=== PATIENT | female | born 1985 | race Caucasian/White ===

== ENCOUNTER 2024-01-05 10:38 | Inpatient (IN) ==
[2024-01-05] MEDS ORDERED: Prochlorperazine 5 mg/ml 2 ml VIAL (10 mg) IV PRN (11:57)
[2024-01-05] MEDS ORDERED: Lidocaine 1% VIAL 10 MG/ML 30 ML VIAL INJ PRN (11:57)
[2024-01-05 13:02] LABS: Urine Benzodiazepine Screen None Detected (None Detect); Urine Cannabinoids Screen None Detected (None Detect); Urine Opiates Screen None Detected (None Detect)
[2024-01-05 13:54] LABS: ABS Monocytes 0.5 10^3/uL (0.0-0.9); ABS Neutrophils 5.9 10^3/uL (1.5-7.6); ABS Nucleated RBC 0.01 10^3/ul; Eosinophil % 0.2 %; Hematocrit 38.9 % (35-45); Hemoglobin 13.1 g/dL (11.5-14.3); Lymphocyte % 24.1 %; Mean Corpuscular Hemoglobin 29.9 pg (27-33); Mean Corpuscular Hgb Conc 33.7 g/dL (31-36); Mean Corpuscular Volume 88.7 fL (80-97); Mean Platelet Volume 9.8 fL (7.5-11.2); Nucleated Red Blood Cells % 0.1 %/100WBC (0.0-0.8); Platelet Count 150 10^3/uL (150-450); Red Blood Count 4.39 10^6/uL (3.63-4.92); Red Cell Distribution Width 14.2 % (12-17); White Blood Count 8.5 10^3/uL (3.8-11.8)
[2024-01-05 13:58] LABS: Urine Appearance Clear; Urine Bilirubin Negative (Negative); Urine Blood Negative (Negative); Urine Color Yellow; Urine Glucose Negative (Negative); Urine Ketones Negative (Negative); Urine Nitrite Negative (Negative); Urine Protein 1+ (>=30 mg/dL) (Negative); Urine Specific Gravity 1.031 (1.002-1.030); Urine Urobilinogen Negative (Negative)
[2024-01-05 14:03] LABS: Urine Bacteria 1+ /HPF (Absent); Urine Red Blood Cell Trace(0-2/hpf) /HPF (0-Trace); Urine Squamous Epithelial Cell Present /HPF (Absent); Urine White Blood Cell Trace(0-5/hpf) /HPF (0-Trace)
[2024-01-05 14:19] LABS: Urine Creatinine Concentration 208.99 mg/dL (20.00-320.00); Urine TP Creat Ratio 0.12 mg/mg
[2024-01-05 14:20] LABS: Albumin 3.7 g/dL (3.2-5.2); Albumin/Globulin Ratio 1.5 (1-3); Calcium 9.2 mg/dL (8.6-10.3); Creatinine, Serum 0.62 mg/dL (0.51-0.95); Globulin 2.4 g/dL (2-4); Potassium 4.2 mmol/L (3.5-5.0); Total Bilirubin 0.3 mg/dL (0.2-1.0); Total Protein 6.1 g/dL (6.4-8.9); Uric Acid 4.9 mg/dL (2.3-6.6); eGFR CKD-EPI 116.1 (>60)
[2024-01-05] MEDS: Lactated Ringers 1000 ml BAG 1,000 ML IV ONE (19:25)
[2024-01-05] MEDS: OBEPIDURAL (200 ML) 200 ML EPIDURAL ONE (19:55)
[2024-01-05] MEDS ORDERED: Sodium Citrate/Citric Acid LIQ 15 ML UDC PO PRN (20:08)
[2024-01-05] MEDS ORDERED: Phenylephrine 40 mcg/mL 10mL (400mcg) SYRINGE IV PUSH PRN ×2 (20:08)
[2024-01-05] MEDS ORDERED: Glycerin ADULT 2.4 gm SUPP PR PRN (21:08)
[2024-01-05] MEDS ORDERED: Witch Hazel PAD JAR TOPICAL PRN (21:08)
[2024-01-05] MEDS ORDERED: Dibucaine 1% OINT 28.35 GM TUBE PR PRN (21:08)
[2024-01-05 21:17] LABS: Urine Appearance Clear; Urine Bilirubin Negative (Negative); Urine Blood Trace (Negative); Urine Color Light-Yellow; Urine Glucose Negative (Negative); Urine Ketones Negative (Negative); Urine Nitrite Negative (Negative); Urine Protein Trace (Negative); Urine Specific Gravity 1.022 (1.002-1.030); Urine Urobilinogen Negative (Negative)
[2024-01-05] MEDS ORDERED: Lactated Ringers 1000 ml BAG 1,000 ML IV SCH (22:00)
[2024-01-05] MEDS: Lidocaine 1.5% EPI 1:200,000 30 ML SDV ONE (23:33)
[2024-01-06] MEDS: Oxytocin in LR 20,000 MILLI.UNIT/1,000 ML BAG IV SCH ×2 (03:04→03:05)
[2024-01-06] MEDS: OBEPIDURAL (200 ML) 200 ML EPIDURAL SCH (03:06)
[2024-01-06] MEDS: Lactated Ringers 1000 ml BAG 1,000 ML IV ONE (04:55)
[2024-01-06] MEDS: Lactated Ringers 1000 ml BAG 1,000 ML IV SCH ×2 (04:55)
[2024-01-06] MEDS: Buffered Lidocaine 1% SYRIN 1 ml INTRADERM ONE (04:55)
[2024-01-06 05:49] LABS: ABS Basophils 0.1 10^3/uL (0.0-0.1); ABS Monocytes 0.9 10^3/uL (0.0-0.9); ABS Neutrophils 8.9 10^3/uL (1.5-7.6); Eosinophil % 0.2 %; Hematocrit 32.9 % (35-45); Hemoglobin 11.4 g/dL (11.5-14.3); Lymphocyte % 16.9 %; Mean Corpuscular Hemoglobin 30.4 pg (27-33); Mean Corpuscular Hgb Conc 34.7 g/dL (31-36); Mean Corpuscular Volume 87.5 fL (80-97); Mean Platelet Volume 9.5 fL (7.5-11.2); Platelet Count 125 10^3/uL (150-450); Red Blood Count 3.76 10^6/uL (3.63-4.92); Red Cell Distribution Width 14.1 % (12-17); White Blood Count 11.8 10^3/uL (3.8-11.8)
[2024-01-06] MEDS: Oxytocin 10 UNITS/ML 1 ML VIAL ONE (20:05)
[2024-01-07 09:34] VITALS: BP 137/81
== END 2024-01-07 11:35 | disposition home or self-care (01) | DRG 560 ==
LOC: MCHOBOUT 10:38 → MCHOB 12:19
PROVIDERS: ADMIT Obstetrics & Gynecology; ATTEND Obstetrics & Gynecology